=== PATIENT | male | born 1940 | race Caucasian/White ===

== ENCOUNTER → 2016-06-20 | Outpatient (CLI) | payer MEDICARE ==
[2016-06-20 10:54] LABS: BASO % 0.4 %; BASO ABS # 0.03 K/uL (0-0.2); COMPLETE YES; EOS % 1.6 %; HEMATOCRIT 42.4 % (42-52); IG% 0.3 %; LYMPH % 31.7 %; MEAN CELL VOLUME 90.4 fL (80-100); MEAN CORPUSCULAR HEMOGLOBIN 32.2 pg (25-34); MEAN CORPUSCULAR HGB CONC 35.6 g/dl (32-36); MEAN PLATELET VOLUME 10.6 fL (7.4-10.4); MONO % 11.4 %; NEUT % 54.6 %; PLATELET COUNT 202 K/uL (130-400); RED BLOOD COUNT 4.69 M/uL (4.7-6.1); WHITE BLOOD COUNT 7.56 K/uL (4.8-10.8)
[2016-06-20 11:10] LABS: ESTIMATED AVERAGE GLUCOSE 128 mg/dl; HA1C FLAG Normal (Normal)
[2016-06-20 11:13] LABS: ALB/GLOB RATIO 1.1 (0.9-2); ALKALINE PHOSPHATASE 62 U/L (45-117); ALT/SGPT 44 U/L (12-78); AST/SGOT 21 U/L (15-37); BLOOD UREA NITROGEN 14 mg/dl (7-18); BUN/CREATININE RATIO 14.8 (10-20); CALCIUM 8.7 mg/dl (8.5-10.1); CARBON DIOXIDE 27 mmol/L (21-32); CHLORIDE 112 mmol/L (98-107); CREATININE 0.93 mg/dl (0.60-1.40); GLUCOSE 128 mg/dl (70-99); SODIUM 146 mmol/L (136-145)
[2016-06-20 11:25] LABS: CHOLESTEROL 142 mg/dl (0-200); CHOLESTEROL/HDL RATIO 3.4; HDL CHOLESTEROL 42 mg/dl; LDL CHOLESTEROL CALCULATED 71 mg/dl; TRIGLYCERIDES 147 mg/dl (0-150); VERY LOW DENSITY LIPOPROT CALC 29 mg/dl
== END | disposition home or self-care (01) ==
LOC: C.LABBC 07:24
PROVIDERS: ATTEND Internal Medicine
DX: Z12.5 Encounter for screening for malignant neoplasm of prostate (principal); R73.01 Impaired fasting glucose

== ENCOUNTER → 2017-07-06 | Outpatient (CLI) | payer MEDICARE ==
[2017-07-06 10:41] LABS: BASO % 0.4 %; BASO ABS # 0.03 K/uL (0-0.2); EOS % 1.6 %; EOS ABS # 0.12 K/uL (0-0.5); HEMATOCRIT 41.4 % (42-52); HEMOGLOBIN 14.4 g/dL (14.0-18.0); IG# 0.02 K/uL (0.00-0.02); LYMPH ABS # 1.62 K/uL (1.2-3.4); MEAN CORPUSCULAR HEMOGLOBIN 31.6 pg (25-34); MEAN CORPUSCULAR HGB CONC 34.8 g/dl (32-36); MONO % 8.8 %; MONO ABS # 0.65 K/uL (0.11-0.59); NEUT % 66.9 %; NEUT ABS # 4.92 K/uL (1.4-6.5); PLATELET COUNT 203 K/uL (130-400); RED CELL DISTRIBUTION WIDTH CV 12.8 % (11.5-14.5); RED CELL DISTRIBUTION WIDTH SD 42.2 fL (36.4-46.3); WHITE BLOOD COUNT 7.36 K/uL (4.8-10.8)
== END | disposition home or self-care (01) ==
LOC: C.LABBC 09:06
PROVIDERS: ATTEND Physician Assistant
DX: M79.1 Myalgia (principal); M25.50 Pain in unspecified joint; T14.8XXA Other injury of unspecified body region, initial encounter; W57.XXXA Bitten or stung by nonvenomous insect and other nonvenomous arthropods, initial encounter

== ENCOUNTER → 2017-08-04 | Outpatient (CLI) | payer MEDICARE ==
[2017-08-04 13:46] LABS: BASO % 0.4 %; BASO ABS # 0.03 K/uL (0-0.2); EOS % 1.2 %; HEMOGLOBIN 15.3 g/dL (14.0-18.0); IG# 0.03 K/uL (0.00-0.02); LYMPH % 20.9 %; MEAN CELL VOLUME 90.1 fL (80-100); MEAN CORPUSCULAR HEMOGLOBIN 32.1 pg (25-34); MEAN CORPUSCULAR HGB CONC 35.6 g/dl (32-36); MEAN PLATELET VOLUME 10.5 fL (7.4-10.4); MONO % 9.2 %; MONO ABS # 0.75 K/uL (0.11-0.59); NEUT % 67.9 %; NEUT ABS # 5.53 K/uL (1.4-6.5); PLATELET COUNT 210 K/uL (130-400); RED CELL DISTRIBUTION WIDTH CV 12.9 % (11.5-14.5); RED CELL DISTRIBUTION WIDTH SD 42.1 fL (36.4-46.3); WHITE BLOOD COUNT 8.14 K/uL (4.8-10.8)
[2017-08-04 14:04] LABS: ALBUMIN 3.6 gm/dl (3.4-5.0); ALKALINE PHOSPHATASE 76 U/L (45-117); ALT/SGPT 31 U/L (12-78); AST/SGOT 17 U/L (15-37); BLOOD UREA NITROGEN 9 mg/dl (7-18); CALCIUM 9.2 mg/dl (8.5-10.1); CARBON DIOXIDE 24 mmol/L (21-32); CHOLESTEROL 128 mg/dl (0-200); GLUCOSE 109 mg/dl (70-99); LDL CHOLESTEROL CALCULATED 70 mg/dl; POTASSIUM 3.9 mmol/L (3.5-5.1); SODIUM 143 mmol/L (136-145); TOTAL PROTEIN 7.1 gm/dl (6.4-8.2)
[2017-08-04 14:09] LABS: HEMOGLOBIN A1C 5.6 % (4.5-5.6)
== END | disposition home or self-care (01) ==
LOC: C.LABPBG 08:48
PROVIDERS: ATTEND Physician Assistant
DX: I25.10 Atherosclerotic heart disease of native coronary artery without angina pectoris (principal); E78.5 Hyperlipidemia, unspecified; G47.33 Obstructive sleep apnea (adult) (pediatric); R73.01 Impaired fasting glucose; I10 Essential (primary) hypertension; R70.0 Elevated erythrocyte sedimentation rate

== ENCOUNTER 2018-05-23 05:55 | Inpatient (IN) ==
--- NOTE | 2018-05-15 10:01 | Anesthesiology Consultation ---
Date of Service May 15, 2018 Assessment & Plan (1) Encounter for pre-operative examination: Chart Review Chart Review: Acceptable Risk for Surgery and Patient NOT seen in Pre Admission Testing Consults Requested none History Surgery Operation Date: 05/23/18 07:30 Proposed Procedures p Navigational Bronchoscopy with ICG Marking, - Bala Shepherd MD, FACS s Robotic Left Video Assisted Thoracoscopy with Left Lower Lobe Wedge Resection , Possible Left Lower Lobectomy with Mediastinal Lymphadenectomy - Bala Shepherd MD, FACS Height/Weight Height: 5 ft 11 in Weight: 113.3 kg Allergies Allergy/AdvReac Type Severity Reaction Status Date / Time No Known Allergies Allergy Verified 04/13/18 10:15 Medications Home Medications Medication Instructions Recorded Confirmed Last Taken aspirin [Aspir-Low] 81 mg PO QAM 04/11/18 05/14/18 04/13/18 07:00 carvedilol 3.125 mg PO BID 04/11/18 05/14/18 04/13/18 07:00 losartan 50 mg PO QAM 04/11/18 05/14/18 04/12/18 07:00 lutein 20 mg PO QAM 04/11/18 05/14/18 04/12/18 07:00 omega 3,6,9 combination no.7 1 tab PO QAM 04/11/18 05/14/18 04/12/18 07:00 prednisone 5 mg PO QAM 04/11/18 05/14/18 04/12/18 07:00 rosuvastatin [Crestor] 20 mg PO HS 04/11/18 05/14/18 04/12/18 23:00 Past Medical History Medical History CAD (coronary artery disease) Hyperlipidemia Hypertension Myocardial Infarction AGE 43 YRS-1984 PMR (polymyalgia rheumatica) Sleep apnea CPAP Past Surgical History Surgical History History of adenoidectomy History of appendectomy History of arthroscopy LEFT SHOULDER-BONE SPUR History of bronchoscopy HX OF NAVIGATIONAL BRONCH ON 04/13/[address] SHEPHERD. Julian 2, no view. Glidescope #4, 8.5 ETT inserted. History of cardiac cath TOTAL 5 CATHS WITH TOTAL 3 STENTS-LAST CATH DONE "COUPLE YRS AGO" [facility] History of cholecystectomy History of coronary artery bypass graft 3-4 VESSELS History of discectomy LUMBAR History of tonsillectomy Social History Smoking Status: Former smoker tobacco type: cigarettes and smokeless tobacco Do You Dip or Chew Tobacco: Yes (HX OF 1 CAN PER 2 DAYS, ADVISED TO HOLD DOS.) Smoking End Date: QUIT 1989 (CIGARETTES) Hx Alcohol Use: Yes Alcohol type: beer alcohol intake frequency: 0-2 drinks per day Hx Substance Use: No substance use type: does not use Testing Electrocardiogram Date: 06/26/17 Findings: + SB @ (SB at 61 w/ 1st degree AVB;old inferior PR) Chest X-Ray Date: 04/13/18 CLINICAL HISTORY: Status post bronchoscopy. FINDINGS: An AP, portable, upright chest radiograph is correlated with chest CT dated 03/30/2018. The examination is degraded by portable technique and patient rotation. The patient is status post midline sternotomy. The heart is enlarged and there is atherosclerotic calcification of the thoracic aorta. The pulmonary vasculature is noncongested. No airspace consolidation, large pleural effusion, or pneumothorax is seen. Small pulmonary nodules/lesions seen by CT are not apparent by x-ray. There is mild bibasilar scarring/atelectasis. The skeletal structures are osteopenic. The bony thorax is grossly intact. IMPRESSION: 1. No pneumothorax is identified post procedure. 2. Cardiomegaly without radiographic evidence of congestive failure. 3. No airspace consolidation or large pleural effusion is identified. Echocardiogram Date: 05/16/16 EF: 45 LV Function: dysfunctional (mildly decreased LV function) Other Findings: + LVH (mild) and + diastolic dysfunction (grade 1) Valvular Disease: + AI (mild) and + MR (mild mr) mild tr Laboratory Results Laboratory Tests 05/02/18 16:03 Sodium 141 Potassium 3.6 Chloride 113 H Carbon Dioxide 23 BUN 13 Creatinine 0.89 Glucose 120 H
[2018-05-23] MEDS ORDERED: LR 15ML/HR IV SCH (06:00)
[2018-05-23] MEDS ORDERED: LIDOCAINE HCL 2% 2 ML VIAL/AMP(20MG/ML) INFIL ONE (06:57)
[2018-05-23] MEDS ORDERED: PROPOFOL IV EMULSION 10 MG/ML 20 ML VIAL IV ONE (06:57)
[2018-05-23] MEDS ORDERED: ROCURONIUM BROMIDE 10 MG/ML 5 ML VIAL ONE ×5 (06:57→10:07)
[2018-05-23] MEDS ORDERED: ONDANSETRON INJ 2 MG/ML 2 ML VIAL ONE (06:57)
[2018-05-23] MEDS ORDERED: fentaNYL citrate 100 MCG/2 ML VIAL ONE ×2 (06:58→09:15)
[2018-05-23] MEDS ORDERED: MIDAZOLAM HCL 1 MG/ML 2ML VIAL ONE (06:58)
--- NOTE | 2018-05-23 07:13 | History & Physical Bridge Note ---
Date of Service May 23, 2018 History & Physical Bridge Note I have examined the patient, reviewed the History & Physical and in the interval since the performance of the History & Physical I have noted the following changes of clinical significance: no changes noted
[2018-05-23] MEDS ORDERED: BUPIVACAINE 0.5 % 5 MG/1 ML MPF 30ML VIAL ONE (07:18)
[2018-05-23] MEDS ORDERED: BUPIVACAINE LIPOSOME 1.3% 266 MG/20 ML VIAL ONE (07:19)
[2018-05-23] MEDS ORDERED: SODIUM CHLORIDE 0.9% PF 50 ML VIAL ONE (07:19)
[2018-05-23] MEDS ORDERED: CEFAZOLIN 3000MG/72.5 ML BAG IV ONE (07:26)
[2018-05-23] MEDS ORDERED: HYDROCORTISONE SOD SUCCINATE 100 MG/2 ML VIAL ONE (08:18)
[2018-05-23] MEDS ORDERED: INDOCYANINE GREEN 25 MG/10 ML INJ ONE (09:29)
[2018-05-23] MEDS ORDERED: ONDANSETRON INJ 2 MG/ML 2 ML VIAL IV PRN ×2 (09:54→13:02)
[2018-05-23] MEDS ORDERED: ePHEDrine sulfate 50 MG/ML AMP IV PRN (09:54)
[2018-05-23] MEDS ORDERED: fentaNYL citrate 100 MCG/2 ML VIAL IV PRN (09:54)
[2018-05-23] MEDS ORDERED: HYDROmorphone INJ 2 MG/ML SYR/VIAL IV PRN (09:54)
[2018-05-23] MEDS ORDERED: ATROPINE SULFATE 0.1 MG/ML 10ML SYR IV PRN (09:54)
[2018-05-23] MEDS ORDERED: GLYCOPYRROLATE 0.2 MG/ML VIAL ONE (10:19)
[2018-05-23] MEDS ORDERED: NEOSTIGMINE METHYLSULFATE 5 MG/5 ML SYR ONE (10:19)
--- NOTE | 2018-05-23 10:23 | Fluoroscopy Report ---
FL chest 1V frontal CLINICAL HISTORY: [facility] COMPARISON STUDY: None FLUOROSCOPY TIME: 38 seconds NUMBER OF FLUOROSCOPIC IMAGES: 2 FINDINGS: Image intensifier utilized for navigational bronchoscopy assistance. IMPRESSION: Image intensifier utilized for navigational bronchoscopy assistance. The above report was generated using voice recognition software. It may contain grammatical, syntax or spelling errors. Electronically signed by: Rodolfo Hewitt M.D. 05/23/2018 10:22 AM
--- NOTE | 2018-05-23 11:12 | Post Operative Brief Note ---
Immediate Post Op Note v1 Date of Surgery May 23, 2018 Pre & Post Diagnosis Operation Date: 05/23/18 07:30 Pre-Op Diagnosis: Left Lung Mass Post-Op Diagnosis: Left Lung Mass Procedure Operation Date: 05/23/18 07:30 Actual Procedures p Navigational Bronchoscopy with ICG Marking, - Bala Shepherd MD, FACS s Robotic Left Video Assisted Thoracoscopy with Left Lower Lobe Wedge Resection X 2 with Mediastinal lymph node biopsy (Left) - Bala Shepherd MD, FACS Surgeon Bala Shepherd MD, FACS Specialist [employer] Janay ABRAHAM Estimated Blood Loss 50 Findings Consistent with Post-Op Diagnosis Drains Chest Tube and Locke Catheter
--- NOTE | 2018-05-23 12:13 | XRay Report ---
XR chest 1V not portable CLINICAL HISTORY: post-op post procedure COMPARISON STUDY: 04/13/2018 FINDINGS: Postoperative changes left hemithorax. Left-sided chest tube in good position. No evidence for postprocedural pneumothorax. Mild left basilar atelectatic change. Trace subcutaneous emphysemato us change. IMPRESSION: 1. Unremarkable postoperative changes left hemithorax. 2. Mild left basilar atelectasis. 3. Left-sided chest tube in good position with no evidence for pneumothorax. The above report was generated using voice recognition software. It may contain grammatical, syntax or spelling errors. Electronically signed by: Rodolfo Hewitt M.D. 05/23/2018 12:12 PM
--- NOTE | 2018-05-23 12:33 | Anesthesiology Progress Note ---
Date of Service May 23, 2018 Anesthesia Post Procedure Vital Signs Vital Signs: Temp Pulse Pulse Resp BP Pulse Ox 05/23/18 12:25 36.3 C L 64 18 126/82 97 05/23/18 12:15 36.3 C L 58 L 18 134/79 94 05/23/18 12:05 61 18 133/83 96 05/23/18 11:55 66 20 137/93 94 05/23/18 11:45 71 23 143/100 H 99 05/23/18 11:35 83 20 142/96 H 100 05/23/18 11:29 36.1 C L 90 23 153/103 H 99 05/23/18 06:21 36.9 C 63 18 146/95 H Pain Intensity Left Chest: Pain Intensity: 2 Notes Mental Status: alert / awake / arousable and participated in evaluation Patient Amnestic to Procedure: Yes Nausea / Vomiting: adequately controlled Pain: adequately controlled Airway Patency, RR, SpO2: stable & adequate BP & HR: stable & adequate Hydration State: stable & adequate Anesthetic Complications: no major complications apparent and Pt Satisfied with anesthetic care
--- NOTE | 2018-05-23 12:33 | Procedure Note ---
Procedure Note Date of Service May 23, 2018 Arterial line placed in right radial artery in OR 11 in preparation for VATs with Dr. Shepherd. Right wrist prepped with chlorhexidine and draped with sterile towels. 20 G angiocath placed under sterile technique utilizing sterile gloves, surgical hats and masks. Catheter threaded using seldinger technique with return of pulsatile, bright red blood. Site covered with occlusive dressing and taped in place. Waveform consistent with correct arterial placement. After placement, fingers of procedural hand had normal perfusion. Patient tolerated procedure well without complications.
[2018-05-23] MEDS ORDERED: MoRPHine SULFATE 4 MG/ML 1 ML CARP\\VIAL IV PRN (13:02)
[2018-05-23] MEDS: D5W AND 1/2NSS 1,000 ML IV SCH ×2 (14:03→23:55)
[2018-05-23 14:14] LABS: Hematocrit (blood only) 42.9 % (42-52); Mean Corpuscular Volume 94.1 fL (80-100); Mean Platelet Volume 9.8 fL (7.4-10.4); Platelet Count 186 K/uL (130-400); RDW Coefficient of Variation 12.7 % (11.5-14.5); RDW Standard Deviation 43.1 fL (36.4-46.3); Red Blood Count 4.56 M/uL (4.7-6.1); White Blood Count 15.64 K/uL (4.8-10.8)
[2018-05-23 14:27] LABS: INR 1.1 (0.9-1.1); Partial Thromboplastin Ratio 0.9; Partial Thromboplastin Time 25.7 Seconds (21.0-31.0)
[2018-05-23 14:33] LABS: Creatinine Clr Calc Pharmacy 91.4 ml/min; Est GFR (African American) 95.2; Est GFR (Non-African American) 82.2
[2018-05-23] MEDS ORDERED: COUGH DROP (SUGAR FREE) LOZ 24 LOZ/1 BOX BUCCAL PRN (16:57)
[2018-05-23] MEDS ORDERED: Nursing to Pharmacy Communication ONE (17:48)
--- NOTE | 2018-05-23 19:54 | Operative Report ---
DATE OF OPERATION: 05/23/2018 PREOPERATIVE DIAGNOSIS: Mass, left lower lobe. POSTOPERATIVE DIAGNOSIS: Mass, left lower lobe. PROCEDURES: 1. Electromagnetic navigational bronchoscopy with marking of left lower lobe mass with indocyanine green. 2. Robot-assisted left thoracoscopy with wedge resection x2 of left lower lobe mass. SURGEON: Bala Shepherd MD. SUBCONTRACTS MANAGER: Janay Lopez PA-C. ANESTHESIA: General anesthesia with endotracheal intubation. INDICATION FOR PROCEDURE AND FINDINGS: Mr. Cabrera is a 77-year-old male who was found to have a mass in his left lower lobe. This was a ground-glass opacity. It was asymptomatic. We had a long discussion about this and proceeded with endobronchial ultrasound and biopsy with a navigational bronchoscopy on 04/13/2018. I saw him back in the office as the final pathology showed no evidence of tumor and some changes consistent with inflammation were seen. We also did an endobronchial ultrasound with biopsy of his lymph nodes and really they were small; left-sided nodes did show no evidence of tumor. However, we did not really get good samples. I have met and had a long talk with the patient and his . We had a long talk with the family and laid down options including repeating a CT scan in the future and following him or marking this with indocyanine green dye and wedging this out. It is not in a good area for biopsy in the mid portion of the left lower lobe posteriorly. We had a long talk about options. The patient called back after a long discussion with his family and his and I have asked that we proceed with a biopsy. On 05/23/2018, the patient underwent an uncomplicated navigational bronchoscopy. We got out close to this nodule, although we really did not see it on ultrasound, which is not surprising given the fact this was a ground-glass opacity. We then injected indocyanine dye and then turned the patient and did a robotic thoracoscopic evaluation and I did see the indocyanine dye quite nicely. I then did a generous wedge to remove this. This was sent off for frozen section. While waiting for this, we did took down the inferior pulmonary ligament and started working in the fissure. We did down in level 8 and level 9 nodes. Frozen section came back as not really seeing any evidence of cancer as there was really no nodule to biopsy. I did explain to Dr. Antony from Pathology that this was a ground-glass opacity, he may not see that. I then had to make a decision about whether to proceed with a lobectomy or stopping. I elected to stop. I had a long talk with the family and told them that this mass, while suspicious, could well be benign etiology. Also, explained that we may not be able to get this, although I felt with the dye marking we should be able to. As we had not found cancer on frozen section, I did do another wedge resection, a bit more posteriorly. We did not see evidence of malignancy on frozen, so I stopped there. We did do an Exparel block. He tolerated it well. DETAILS OF PROCEDURE: The patient brought to operating room and laid in supine position. General anesthesia was induced. Endotracheal intubation was performed with a single lumen tube. Appropriate timeout have been called and after the antibiotics given, a navigational probe was placed through the endobronchial tube and we registered the airways. I then went out into the left lower lobe and came to the area which had been marked. We really did not see much on the radial ultrasound probe. We then directed the probe towards the pleura and injected 1 mL of indocyanine dye with 1 mL of air. After this had been injected we removed the fiberoptic bronchoscope and the navigational probe. We got into no bleeding. There were no endobronchial lesions. The patient was then turned in right lateral decubitus position. Left chest prepped and draped in usual sterile fashion. A 5 mm scope was placed through the ninth interspace near the mid axillary line and we could see there were no adhesions and there were fairly complete fissures. Upon placing the scope, I then evaluated the area and I could see the chest nicely. We placed our other cannulas. Two 8 mm ports were placed, 1 anterior and 1 posterior to the camera port and we put a 5 mm port more posteriorly. An assistance port was made which was about 12 mm above the diaphragm between the anterior port and the camera port few interspaces below. We then went in and we used fluorescence and we could see the indocyanine green light up. I grasped this area and we did a generous biopsy of this. I really did not feel any masses. This was delivered off the field in an Endobag and I then sent it off for frozen section. While waiting for this, I evaluated the inferior pulmonary ligament and took this down completely all the way to the inferior pulmonary vein and removed a level 9 node and a level 8 node. I dissected along the anterior aspect of the inferior pulmonary vein and this was nicely cleaned off. There was a fairly complete fissure and I could identify the artery and the fissure without really dissecting. We then had a decision to make about whether to proceed with a lobectomy or to observe the patient as the pathologist called back and really did not see any masses. I explained this was a ground-glass opacity. After some deliberation, I elected to biopsy another area a bit more posterior to make sure we had removed all that we could. I did not wanted to deform the lobe too much more. Exparel 266 mg was mixed with 250 mL of normal saline, and 30 mL of 0.25% Marcaine injected into every port before we made an incision and I then used it to do an intercostal block from the 2nd-11th rib. A 24-Norwegian chest tube was then placed to the anterior most port directed towards the apex, sutured in place with heavy silk suture. The 2 larger ports, the camera port which had been converted to a 12 mm port and a 12 mm biology research assistant's port had the muscle layers closed with 0 Vicryl. 4-0 Monocryl was used in running subcuticular fashion to approximate the wound edges. The patient tolerated well, was extubated from the room, had no air leak and negligible blood loss. He was transferred back to the postanesthesia care unit in stable condition. I attest to the content of the Intraoperative Record and any orders documented therein. Any exception s are noted below.
[2018-05-23] MEDS: OXYCODONE/ACETAMINOPHEN 5mg/325mg TAB PO PRN ×2 (20:01→23:03)
[2018-05-23] MEDS: DOCUSATE SODIUM 100 MG CAP PO SCH (20:03)
[2018-05-23] MEDS: CARVEDILOL 3.125 MG TAB PO SCH (20:03)
[2018-05-23] MEDS ORDERED: ROSUVASTATIN CALCIUM 20 MG TAB PO SCH (21:00)
[2018-05-24] MEDS: OXYCODONE/ACETAMINOPHEN 5mg/325mg TAB PO PRN (04:47)
--- NOTE | 2018-05-24 07:05 | XRay Report ---
XR chest 1V portable CLINICAL HISTORY: VATS postoperative COMPARISON STUDY: 05/23/2017 FINDINGS: Left hemithoracic stable postoperative change. The left-sided chest tube imaging in positio n. No postprocedural pneumothorax. Unchanging parenchymal prominence of lung base. Subcutaneous emphy sema minimally increased. IMPRESSION: No post procedural pneumothorax. Left chest tube in good position. Slight increase in benton bcutaneous emphysema. Unchanging parenchymal prominence left base. The above report was generated using voice recognition software. It may contain grammatical, syntax or spelling errors. Electronically signed by: Rodolfo Hewitt M.D. 05/24/2018 7:04 AM
--- NOTE | 2018-05-24 07:47 | XRay Report ---
SINGLE VIEW CHEST CLINICAL HISTORY: Chest tube removal. FINDINGS: An AP, portable, upright chest radiograph is compared to study performed earlier the same d ay 05/24/2018 and correlated with chest CT dated 03/30/2018. The examination is degraded by portable george hnique and patient rotation. A left-sided chest tube has been removed. Subadjacent emphysema is note d along the left chest wall. The patient is status post midline sternotomy. The heart is enlarged and there is atherosclerotic calcification of the thoracic aorta. The pulmonary vasculature is nonconges raquel. There are postoperative changes from left lower lobe resection. Persistent consolidation is seen at the left lung base and there are trace pleural effusions. Atelectasis is noted at the right lung base. No pneumothorax is seen. The skeletal structures are osteopenic. The bony thorax is grossly int act. IMPRESSION: 1. The left-sided chest tube has been removed. No pneumothorax is seen. 2. Left basilar consolidation and trace pleural effusions persist. 3. Cardiomegaly without radiographic evidence of congestive failure. Electronically signed by: Chilango Adan M.D. 05/24/2018 7:46 AM
[2018-05-24] MEDS: CARVEDILOL 3.125 MG TAB PO SCH (08:13)
[2018-05-24] MEDS: DOCUSATE SODIUM 100 MG CAP PO SCH (08:13)
[2018-05-24] MEDS ORDERED: ASPIRIN 81 MG ECTAB PO SCH (09:00)
[2018-05-24] MEDS ORDERED: OMEGA COMBINATION NO 7 PO SCH (09:00)
[2018-05-24] MEDS ORDERED: NON-FORMULARY MEDICATION (Lutein 20 MG) PO SCH (09:00)
[2018-05-24] MEDS ORDERED: predniSONE 5 MG TAB PO SCH (09:00)
[2018-05-24] MEDS ORDERED: LOSARTAN POTASSIUM 50 MG TAB PO SCH (09:00)
[2018-05-24] MEDS ORDERED: ENOXAPARIN INJ 40 MG/0.4 ML SYR SQ SCH (09:00)
--- NOTE | 2018-05-24 09:47 | Anesthesiology Progress Note ---
Date of Service May 24, 2018 Anesthesia Post Procedure Vital Signs Vital Signs: Temp Pulse Pulse Resp BP BP Pulse Ox 05/24/18 08:40 37.2 C 63 18 136/80 138/83 92 05/24/18 07:45 37.2 C 63 18 138/83 92 05/24/18 05:27 90 05/24/18 04:44 37 C 60 18 136/80 94 05/24/18 00:36 36.9 C 65 18 135/75 93 05/23/18 22:48 37.2 C 73 18 130/85 92 05/23/18 20:45 37.2 C 69 18 153/80 H 94 05/23/18 20:02 05/23/18 18:47 37.1 C 67 18 145/81 H 94 05/23/18 16:45 37.2 C 67 18 144/91 H 96 05/23/18 15:45 36.6 C 71 20 168/97 H 96 05/23/18 14:45 36.4 C L 80 18 178/89 H 95 05/23/18 13:45 36.4 C L 65 16 137/77 94 05/23/18 13:10 62 18 146/89 H 95 05/23/18 12:45 36.5 C 59 L 18 143/85 H 96 05/23/18 12:25 36.3 C L 64 18 126/82 97 05/23/18 12:15 36.3 C L 58 L 18 134/79 94 05/23/18 12:05 61 18 133/83 96 05/23/18 11:55 66 20 137/93 94 05/23/18 11:45 71 23 143/100 H 99 05/23/18 11:35 83 20 142/96 H 100 05/23/18 11:29 36.1 C L 90 23 153/103 H 99 Pulse Ox 05/24/18 08:40 05/24/18 07:45 05/24/18 05:27 05/24/18 04:44 05/24/18 00:36 05/23/18 22:48 05/23/18 20:45 05/23/18 20:02 92 05/23/18 18:47 05/23/18 16:45 05/23/18 15:45 05/23/18 14:45 05/23/18 13:45 05/23/18 13:10 05/23/18 12:45 05/23/18 12:25 05/23/18 12:15 05/23/18 12:05 05/23/18 11:55 05/23/18 11:45 05/23/18 11:35 05/23/18 11:29 Pain Intensity Left Chest: Pain Intensity: 2 Notes Mental Status: alert / awake / arousable and participated in evaluation Patient Amnestic to Procedure: Yes Nausea / Vomiting: see Notes below Pain: adequately controlled Airway Patency, RR, SpO2: stable & adequate BP & HR: stable & adequate Hydration State: stable & adequate Anesthetic Complications: no major complications apparent and Pt Satisfied with anesthetic care
--- NOTE | 2018-05-24 12:06 | Discharge Summary ---
DISCHARGE DIAGNOSIS: Ground-glass opacity, left lower lobe. HOSPITAL COURSE: Tyrell Cabrera is a 77-year-old healthy male who was serendipitously found to have a ground-glass opacity in his left lower lobe. We worked this up and did a PET scan as well as a navigational bronchoscopy and endobronchial ultrasound, so no evidence of malignancy, but we were uncomfortable with this. We had a long discussion and I offered to either follow the patient or to do a navigational bronchoscopy with marking using indocyanine green dye and then taking the patient to the operating room and then wedging it out robotically. We would do a frozen section if we found a mass. On 05/23/2018, the patient underwent an uncomplicated navigational bronchoscopy with marking. I then did a robotic wedge resection. We really did not feel anything and I ended up taking another generous resection posteriorly. I was afraid to take any more for fear of performing the left lower lobe. We did not see an obvious mass. It is unclear to me whether this was removed, although it certainly seemed to be with our marker. The patient had no air leak with negligible blood loss. We did an Exparel block and his pain control was excellent. He was watched on the floor overnight and removed the chest tube on postop day 1. His x-ray looked good. He felt very good. He was discharged home and told to resume all of his regular medications and I did give him tramadol for pain. In addition, we gave him discharge instructions. I will see him back in the office 1 week from today to go over his final pathology.
--- NOTE | 2018-05-29 14:00 | Coding Query ---
PATHOLOGY To promote full compliance with coding requirements relating to patient care, physician participation is requested in all cases of auditing coder uncertainty. Please assist us with the question(s) below: Please review the Pathology report and please document any relevant diagnosis(es) below: Diagnosis(es): Pending outside review of pathology. Thank you DIANA Condon [facility]
--- NOTE | 2018-06-07 04:54 | Coding Query ---
Carcinoid tumorlets PATHOLOGY To promote full compliance with coding requirements relating to patient care, physician participation is requested in all cases of switching operator uncertainty. Please assist us with the question(s) below: Please review the Outside Pathology report and please document any relevant diagnosis(es) below: Diagnosis(es): [facility] you [facility]NA [facility]ondon [facility]
== END 2018-05-24 10:30 | disposition home or self-care (01) | DRG 168 ==
LOC: ASU 05:55 → 3W 11:56